=== PATIENT | male | born 1990 | race Caucasian/White ===

== ENCOUNTER 2023-06-24 16:31 | Emergency (ER) | payer OTHER ==
[~2023-06-24] VITALS: Ht 175.3 cm; Wt 115.1 kg
[2023-06-24 19:09] VITALS: BP 129/84
== END 2023-06-24 19:11 | disposition home or self-care (01) ==
LOC: ED 16:31
DX: S63.501A Unspecified sprain of right wrist, initial encounter (principal); X50.1XXA Overexertion from prolonged static or awkward postures, initial encounter; Z88.2 Allergy status to sulfonamides
CPT/HCPCS: 73110; 73130